=== PATIENT | male | born 1975 | race Caucasian/White ===

== ENCOUNTER 2019-08-16 10:39 | Emergency (ER) | payer OTHER ==
[~2019-08-16] VITALS: Ht 182.9 cm; Wt 102.1 kg
[~2019-08-16 10:39] MED LIST: ALLEGRA-D1 TAB.SR . PO; AMOX1TAB12 PO; GLUCOPHAGE XR750 MG PO; GLUCOTEN CAPLET1 TAB PO; KETO10TA2 PO; MEDROL4 MG PO; MOBIC15 MG PO; MOTRIN800 MG PO; NEURONTIN300 MG PO; SKELAXIN800 MG PO
[2019-08-16] MEDS ORDERED: METFORMIN HCL500 M3 (10:56)
[2019-08-16] MEDS ORDERED: KETO10TA2 PO (12:19)
== END 2019-08-16 12:33 | disposition home or self-care (01) ==
LOC: ER 10:39
DX: M25.572 Pain in left ankle and joints of left foot (principal)

== ENCOUNTER 2019-10-09 14:30 | Emergency (ER) | payer OTHER ==
[~2019-10-09] VITALS: Ht 182.9 cm; Wt 102.1 kg
[~2019-10-09 14:30] MED LIST changes: +METFORMIN HCL500 M3
== END 2019-10-09 16:35 | disposition home or self-care (01) ==
LOC: ER 14:30
DX: B34.9 Viral infection, unspecified (principal); E11.65 Type 2 diabetes mellitus with hyperglycemia